=== PATIENT | female | born 1990 | race Caucasian/White ===

== ENCOUNTER 2021-11-21 12:45 | Emergency (ER) | payer OTHER ==
[~2021-11-21] VITALS: Ht 172.7 cm; Wt 64.0 kg
[2021-11-21] MEDS ORDERED: SODIUM CHLORIDE 0.9% 1,000 ML IV ONE (13:00)
[2021-11-21 13:37] LABS: BASOPHILS % 0.5 % (0.0-2.0); HEMATOCRIT. 34.3 % (36.0-48.0); HEMOGLOBIN. 11.2 g/dL (12.0-16.0); LYMPHOCYTES % 29.4 % (20.0-50.0); MEAN CORPUSCULAR HEMOGLOBIN 28.1 pg (28.0-32.0); MEAN CORPUSCULAR VOLUME 86.2 fL (81.0-99.0); MEAN PLATELET VOLUME 8.7 fl (7.4-10.4); MONOCYTES % 9.3 % (2.0-8.0); NEUTROPHILS % 57.8 % (40.0-76.0); PLATELET 183 x1000/uL (130-400); RED BLOOD CELL COUNT 3.98 mill/uL (4.2-5.4); RED CELL DISTRIBUTION WIDTH 14.2 % (11.6-14.6)
[2021-11-21 13:40] LABS: CLARITY URINE CLOUDY (CLEAR); COLOR URINE YELLOW (YELLOW); KETONES URINE NEGATIVE (NEGATIVE); LEUKOCYTE ESTERASE URINE 3+ (NEGATIVE); NITRITE URINE NEGATIVE (NEGATIVE); OCCULT BLOOD URINE TRACE (NEGATIVE); PROTEIN URINE NEGATIVE (NEGATIVE); SPECIFIC GRAVITY URINE 1.013 (1.005-1.030); UROBILINOGEN URINE 0.2 E.U./dL (0.2-1.0)
[2021-11-21 13:47] LABS: CHLORIDE 102 mEq/L (98-107)
[2021-11-21 13:54] LABS: HCG SCREEN NEGATIVE
[2021-11-21 13:56] LABS: ETHANOL BLOOD < 10 mg/dL
[2021-11-21 14:01] LABS: *AMPHETAMINES SCREEN URINE NEGATIVE (NEGATIVE); *BARBITURATES SCREEN URINE NEGATIVE (NEGATIVE); *BENZODIAZEPINES SCREEN URINE NEGATIVE (NEGATIVE); *COCAINE SCREEN URINE NEGATIVE (NEGATIVE); CANNABINOID URINE SCREEN NEGATIVE (NEGATIVE); METHADONE URINE SCREEN NEGATIVE (NEGATIVE); OPIATES URINE SCREEN NEGATIVE (NEGATIVE); PHENCYCLIDINE URINE SCREEN NEGATIVE (NEGATIVE)
[2021-11-21 18:55] VITALS: BP 116/62
== END 2021-11-21 19:05 ==
LOC: ER 13:02
DX: R55 Syncope and collapse (principal); D64.9 Anemia, unspecified; R41.0 Disorientation, unspecified; F31.9 Bipolar disorder, unspecified; Z91.81 History of falling
CPT/HCPCS: 36415; 70450; 80053; 80305; 80320; 81003; 84703; 85025; 87086; 96360; 99285; J7030; G0480